=== PATIENT | male | born 1990 | race Caucasian/White ===

== ENCOUNTER 2017-04-08 17:42 | Emergency (ER) | payer MEDICAID ==
[2017-04-08] MEDS ORDERED: LET GEL TOPICAL 1 EA SYR TP ONE ×2 (17:48→17:53)
[2017-04-08 17:53] VITALS: BP 137/56; PULSE 97; RESP 16; TEMP 98.8; O2SAT 97
--- NOTE | 2017-04-08 18:13 | EDPHY ---
H & P Stated Complaint: R LE laceration on fence today. Time Seen by Provider: 04/08/17 17:46 HPI/ROS: Chief complaint: Leg laceration HPI: 26-year-old male lacerated his right lower leg on someone edging about 3 o 'clock this afternoon. Is not complaining of any other injuries. Last tetanus was about a year and a half ago. Physical exam: General: Awake, alert, no acute distress Right leg: He has a 2.5 cm vertical laceration over his lower anterior right leg. There is no active bleeding. He has normal sensation distally. He has full flexion extension of his foot and ankle. There is no tendon involvement. Skin: No rash - Personal History Current Tetanus Diphtheria and Acellular Pertussis (TDAP): Yes Tetanus Vaccine Date: within 10 years - Medical/Surgical History Hx Asthma: No Hx Chronic Respiratory Disease: No Hx Diabetes: No Hx Cardiac Disease: No Hx Renal Disease: No Hx Cirrhosis: No Hx Alcoholism: No Hx HIV/AIDS: No Hx Splenectomy or Spleen Trauma: No Other PMH: appy, heart murmur, sleep disturbances - Social History Smoking Status: Current every day smoker Constitutional: Initial Vital Signs Temperature (C) 37.1 C 04/08/17 17:44 Heart Rate 97 04/08/17 17:44 Respiratory Rate 16 04/08/17 17:44 Blood Pressure 137/56 H 04/08/17 17:44 O2 Sat (%) 97 04/08/17 17:44 O2 Delivery Mode Room Air Allergies/Adverse Reactions: No Known Allergies Allergy (Verified 04/08/17 17:53) Home Medications: Medication Instructions Recorded Seroquel 04/08/17 Trazodone HCl 04/08/17 Medical Decision Making Procedures: Procedure: Laceration repair. Verbal consent was obtained from the patient. The 2.5 cm laceration on the right leg was anesthetized in the usual fashion. The wound was irrigated, draped and explored to its base with a gloved finger. There were no deep structures involved. No tendon injury was identified. The wound was repaired with two, 4-0 Prolene horizontal mattress sutures. The wound repair was uncomplicated. The procedure was performed by myself. - Data Points Medications Given: Discontinued Medications Tetracaine/Epinephrine/Lidocaine (Let Gel Topical) 1 ea TP EDNOW ONE Stop: 04/08/17 17:54 Last Admin: 04/08/17 17:50 Dose: 1 ea Departure - Departure Disposition: Home, Routine, Self-Care Clinical Impression: Laceration Condition: Good Instructions: Care For Your Stitches (ED), Laceration (ED) Additional Instructions: Stitches need to be removed in about 10-14 days. Return to the emergency depart for increasing redness, discharge from the wound , fevers, chills, or red streaking up her leg, or any other concerns. Referrals: [facility] [Outside] - As per Instructions
== END 2017-04-08 18:30 | disposition home or self-care (01) ==
LOC: CED 17:42
PROC: 0HQKXZZ Repair Right Lower Leg Skin, External Approach (ICD-10-PCS; principal; 2017-04-08)
DX: S81.811A Laceration without foreign body, right lower leg, initial encounter (principal); F17.200 Nicotine dependence, unspecified, uncomplicated; W26.8XXA Contact with other sharp object(s), not elsewhere classified, initial encounter; Y92.009 Unspecified place in unspecified non-institutional (private) residence as the place of occurrence of the external cause

== ENCOUNTER 2018-07-25 11:39 | Emergency (ER) | payer MEDICAID ==
[2018-07-25 11:48] VITALS: BP 124/62
--- NOTE | 2018-07-25 12:05 | EDPHY ---
H & P Time Seen by Provider: 07/25/18 11:49 HPI/ROS: HPI Left wrist laceration. 27-year-old male by private vehicle with his mother. This patient reports that he was cutting a box with a box stamper and accidentally cut the ventral aspect of his ulnar left wrist. He reports this occurred about 20 hr ago. He reports that he initially super glued it. But part of the laceration has dehisced. He denies any loss of sensation or weakness distally. He has had a tetanus shot within the last 5 years. He is right-hand dominant. He has no other complaints. ROS: Constitutional: No fever, no chills. No weakness. Skin: No rashes. As above. Neurological: No focal weakness or altered sensation. Past medical history: No significant past medical history. He is immunized. Social history: Nonsmoker. Here with his mother. No alcohol. Physical Exam: General Appearance: Alert, no distress. This patient is responding to questions appropriately and in full sentences. This patient appears well- hydrated and well-nourished. Eyes: Pupils equal and round no pallor or injection. No lid edema, erythema or injection. Left wrist exam: Significant for a linear 4 cm laceration mid to distal ulnar aspect of the ventral forearm. The proximal and distal and are well approximated from the Super glue he used. There is approximately a 3 cm central sections that has dehisced. The wound is just through the dermis. It does not appear to involve the fascia. No foreign body found on gross exploration. The left upper extremity is neurovascularly intact. Please see wound care note for further details. Neurological: Motor sensory function is grossly intact. Cranial nerves are normal. Gait is normal. Skin: Warm and dry, no rashes. As above. Extremities are symmetrical. All joints range without pain or impingement. Psychiatric: No agitation. No depression. Database: EKG: Imaging: Procedures: Procedure: Laceration repair. Verbal consent was obtained from the patient. The 3 cm dehisced section of laceration mid to distal ventral ulnar forearm laceration on the left forearm was anesthetized in the usual fashion. The wound was irrigated thoroughly, draped and explored to its base with a gloved finger. There were no deep structures involved. No tendon injury was identified. No foreign body identified on gross exploration The wound was repaired with 6, 4.0 Ethilon sutures placed in interrupted fashion. The wound repair was tolerated well and there were no complications. The procedure was performed by myself. Emergency department course: Triage vital signs reviewed. After suture repair as noted above wound care was discussed with the patient. Infection precautions reviewed. Follow-up and return to emergency department precautions discussed. All of his questions were answered. He was discharged home in good condition with his mother. Differential Diagnosis: The differential diagnosis on this patient includes but is not limited to left wrist laceration. Retained foreign body, neurovascular injury, infection unlikely. This represents a partial list of diagnoses considered. These considerations are based on history, physical exam, past history, reassessment and diagnostic testing. Smoking Status: Current every day smoker Constitutional: Initial Vital Signs Temperature (C) 37.0 C 07/25/18 11:45 Heart Rate 75 07/25/18 11:45 Respiratory Rate 16 07/25/18 11:45 Blood Pressure 124/62 H 07/25/18 11:45 O2 Sat (%) 95 07/25/18 11:45 O2 Delivery Mode Room Air Allergies/Adverse Reactions: No Known Allergies Allergy (Verified 07/25/18 11:49) Home Medications: Medication Instructions Recorded Seroquel 04/08/17 Trazodone HCl 04/08/17 Departure - Departure Disposition: Home, Routine, Self-Care Clinical Impression: Laceration of left wrist Condition: Good Instructions: Care For Your Stitches (ED), Laceration (ED) Additional Instructions: Read and follow provided instructions. Follow-up with your primary care physician in on Friday or Friday of this week for wound check. Sutures are to be removed in 10-12 days. This can be done here or through your primary care physician. Return to the emergency department for redness or swelling around the wound area , drainage of pus, fever, red streaking up her arm or other serious concerns. Referrals: NONE *PRIMARY CARE P,. [Unknown] - As per Instructions
[2018-07-25] MEDS ORDERED: SKIN ADHESIVE (DERMABOND) 1 EACH TP ONE (12:09)
== END 2018-07-25 12:38 | disposition home or self-care (01) ==
LOC: CED 11:39
PROC: 0HQEXZZ Repair Left Lower Arm Skin, External Approach (ICD-10-PCS; principal; 2018-07-25)
DX: S61.512A Laceration without foreign body of left wrist, initial encounter (principal); W26.8XXA Contact with other sharp object(s), not elsewhere classified, initial encounter; Y93.89 Activity, other specified; Y92.9 Unspecified place or not applicable; Y99.9 Unspecified external cause status